=== PATIENT | female | born 1965 | race Caucasian/White ===

== ENCOUNTER 2017-06-13 08:48 | Day surgery (SDC) | payer OTHER ==
[~2017-06-13] VITALS: Ht 157.5 cm; Wt 63.6 kg
[2017-06-13] MEDS ORDERED: AMBIEN (09:47)
[2017-06-13] MEDS ORDERED: IBUPROPHEN (09:47)
[2017-06-13 09:55] VITALS: BP 139/74; PULSE 79; RESP 16
[2017-06-13] MEDS ORDERED: LIDOCAINE 2% (SDV) 5 ML INJ ONE (10:14)
[2017-06-13] MEDS ORDERED: PROPOFOL 40 ML ONE (10:14)
--- NOTE | 2017-06-13 10:56 | OPPN ---
Date/Time of Note Date/Time of Note DATE: 06/13/17 TIME: 10:55 Operative Report Preoperative Diagnosis Change in bowel habit Postoperative Diagnosis Poor prep making the exam suboptimal Rectal polyp was removed Internal hemorrhoids Operation/Procedure Performed Colonoscopy and biopsy Surgeon see signature line community assistant None Anesthesia: MAC Estimated blood loss: none Transfusion Required none Specimen Rectal polyp Grafts/Implants none Complications none ROMI VILLEGAS MD Jun 13, 2017 10:56
[2017-06-13 11:29] VITALS: BP 153/72; PULSE 70; RESP 19
--- NOTE | 2017-06-13 12:08 | GILP ---
DATE OF PROCEDURE: 06/13/2017 PROCEDURE PERFORMED: Colonoscopy and biopsy. SURGEON: Magalys Saha MD. PREOPERATIVE DIAGNOSIS: Change in bowel habits. POSTOPERATIVE DIAGNOSES: 1. Colonoscopy all the way to the cecum. 2. Poor prep making the exam suboptimal. 3. Rectal polyp was removed using biopsy forceps. 4. Internal hemorrhoids. INDICATION: Ms Yvrose Nath is a 52-year-old female patient who noticed change in the bowel habits as well as worsening constipation. She never had a screening colonoscopy. The procedure and possible complications were well explained to the patient. She understood and consented to the procedure. DESCRIPTION OF PROCEDURE: Under influence of anesthesia, the colonoscope was carefully introduced the rectum. Under direct vision, it was advanced all the way to the cecum. FINDINGS: The patient had poor prep making the exam very suboptimal. The patient was noted to have a rectal polyp and it was removed using biopsy forceps. She had internal hemorrhoids. She tolerated the procedure very well. There was no complication from the procedure. At the end of procedure, she was awake with stable vital signs and she was discharged home in the care of her family. IMPRESSION: Please see postop diagnoses. PLAN: 1. MiraLax 17 g dissolved in a glass of water p.o. daily. 2. Await histopathology report. 3. Because of the suboptimal nature of the examination because of poor prep, would recommend repeat colonoscopy with better preparation in 3 years. Dictated By: MD HAROON Kumar/chiki/kiya /Document#: [id number]
== END 2017-06-13 15:55 | disposition home or self-care (01) ==
LOC: GIL 08:48
PROVIDERS: ATTEND Internal Medicine Gastroenterology
DX: R19.4 Change in bowel habit (principal); K62.1 Rectal polyp; K64.8 Other hemorrhoids
CPT/HCPCS: 45380; 84703; 88305; Z7610